=== PATIENT | female | born 1960 | race African-American/Black ===

== ENCOUNTER 2022-01-18 05:52 | Day surgery (SDC) | payer BC ==
[2022-01-16 13:22] VITALS: BMI 23.3
[2022-01-18] MEDS ORDERED: oxyCODONE HCL 5 MG TABLET PO PRN (07:05)
[2022-01-18] MEDS ORDERED: ONDANSETRON 4 MG/2 ML VIAL IVPUSH PRN (07:05)
[2022-01-18] MEDS ORDERED: PROPOFOL 60 ML ONE (07:10)
[2022-01-18] MEDS ORDERED: LACTATED RINGERS SOLUTION 1,000 ML IV SCH ×2 (07:15→11:30)
[2022-01-18] MEDS ORDERED: BUPIVACAINE LIPOSOME/PF (EXPAREL) 266 MG/20 ML VIAL ONE (07:55)
[2022-01-18] MEDS ORDERED: BUPIVACAINE HCL/PF 0.5% (5 MG/ML) 30 ML VIAL IJ ONE (07:55)
[2022-01-18] MEDS ORDERED: MIDAZOLAM HCL 2 MG/2 ML SINGLE DOSE VIAL ONE (07:56)
[2022-01-18] MEDS ORDERED: BUPIVACAINE HCL 50 ML ONE (08:12)
[2022-01-18] MEDS ORDERED: PROPOFOL 20 ML ONE (10:37)
[2022-01-18] MEDS ORDERED: MAGNESIUM HYDROX 2400MG/30ML ORAL SUSPENSION 30 ML CUP PO PRN (11:18)
[2022-01-18] MEDS ORDERED: MAG HYDROX/AL HYDROX/SIMETH 30 ML UNIT-DOSE CUP PO PRN (11:18)
[2022-01-18] MEDS ORDERED: FENTANYL CITRATE/PF 50 MCG/ML VIAL ONE ×2 (12:24→12:44)
[2022-01-18] MEDS: oxyCODONE HCL 5 MG TABLET PO PRN ×2 (13:54→20:08)
[2022-01-18] MEDS: oxyCODONE HCL 10 MG SUSTAINED ACTING TABLET PO SCH (14:11)
[2022-01-18] MEDS: CEFAZOLIN SODIUM 2 GM in DEXTROSE 5%-WATER 100 ML IVPB SCH ×2 (16:02→21:51)
[2022-01-18] MEDS: ONDANSETRON 4 MG/2 ML VIAL IVPUSH PRN ×2 (16:57→17:03)
[2022-01-18] MEDS ORDERED: hydrALAZINE HCL 20 MG/ML VIAL IM ONE (20:16)
[2022-01-18] MEDS ORDERED: hydrALAZINE HCL 20 MG/ML VIAL IVPUSH ONE ×2 (21:21→23:37)
[2022-01-18] MEDS ORDERED: hydrALAZINE HCL 20 MG/ML VIAL ONE (21:22)
[2022-01-19] MEDS: oxyCODONE HCL 10 MG SUSTAINED ACTING TABLET PO SCH ×2 (00:41→09:10)
[2022-01-19] MEDS: oxyCODONE HCL 5 MG TABLET PO PRN (00:42)
[2022-01-19] MEDS: ONDANSETRON 4 MG/2 ML VIAL IVPUSH PRN ×2 (02:54→09:40)
[2022-01-19] MEDS: NIFEdipine E.R 60 MG TABLET PO SCH ×2 (03:15→09:09)
[2022-01-19] MEDS: SENNOSIDES/DOCUSATE COMBO (SENNA PLUS) TABLET (UD) PO SCH ×3 (03:16→12:57)
[2022-01-19] MEDS: CARVEDILOL 25 MG TABLET (FP) PO SCH ×4 (03:16→21:24)
[2022-01-19] MEDS: CELECOXIB 200 MG CAPSULE PO SCH ×4 (03:17→21:24)
[2022-01-19] MEDS: ASPIRIN COATED 81 MG TABLET.EC PO SCH ×4 (03:17→21:24)
[2022-01-19] MEDS: ATORVASTATIN CA 40 MG TABLET (FP) PO SCH ×2 (03:17→21:24)
[2022-01-19] MEDS ORDERED: HYDROmorphone HCl 2 MG/ML VIAL IVPB ONE ×2 (04:04→16:40)
[2022-01-19] MEDS: CEFAZOLIN SODIUM 2 GM in DEXTROSE 5%-WATER 100 ML IVPB SCH (04:38)
[2022-01-19 08:16] LABS: CALCIUM 9.4 mg/dl (8.5-10); CREATININE 1.8 mg/dl (0.55-1.3)
[2022-01-19 08:23] LABS: HEMATOCRIT 41.5 % (32.4-45.2); HEMOGLOBIN 13.7 G/dL (10.7-15.3); MCH 28.7 pg (25.7-33.7); MEAN CELL VOLUME 86.9 fl (80-96); MEAN PLT VOLUME 10.9 fl (7.5-11.1); RBC 4.77 10^6/uL (3.60-5.2); RDW 15.6 % (11.6-15.6); WHITE BLOOD COUNT 10.8 10^3/uL (4.0-10.8)
[2022-01-19] MEDS: prednisoLONE ACETATE 1% OPHTH SUSP 5 ML BOTTLE OD SCH (09:08)
[2022-01-19] MEDS: TIMOLOL 0.5% OPHTHALMIC SOL 5 ML BOTTLE OD SCH (09:08)
[2022-01-19] MEDS: CHLORTHALIDONE 25 MG TABLET PO SCH ×2 (09:09→12:56)
[2022-01-19] MEDS: EZETIMIBE 10 MG TABLET (FP) PO SCH ×2 (09:09→12:58)
[2022-01-19] MEDS: RIVAROXABAN 20 MG TABLET PO SCH ×2 (09:09→12:58)
[2022-01-19] MEDS: CHOLECALCIFEROL (VIT D3 5000 UNITS) 125 MCG TAB PO SCH ×2 (09:09→12:58)
[2022-01-19] MEDS: PANTOPRAZOLE 40 MG TABLET PO SCH (09:18)
[2022-01-19] MEDS ORDERED: CHLORTHALIDONE 25 MG TABLET PO SCH (10:00)
[2022-01-19] MEDS ORDERED: LABETALOL HCL 5 MG/1 ML (100MG/20 ML VIAL) IVPUSH ONE (10:31)
[2022-01-19] MEDS: NIFEdipine E.R. 90 MG TABLET PO SCH (12:57)
[2022-01-19] MEDS: hydrALAZINE HCL 25 MG TABLET (FP) PO SCH ×2 (14:36→21:24)
[2022-01-19] MEDS ORDERED: hydrALAZINE HCL 20 MG/ML VIAL IVPUSH PRN (16:41)
[2022-01-20] MEDS: oxyCODONE HCL 10 MG SUSTAINED ACTING TABLET PO SCH ×3 (05:15→21:03)
[2022-01-20] MEDS: SENNOSIDES/DOCUSATE COMBO (SENNA PLUS) TABLET (UD) PO SCH ×3 (05:15→21:02)
[2022-01-20] MEDS: hydrALAZINE HCL 25 MG TABLET (FP) PO SCH ×3 (07:00→21:06)
[2022-01-20 08:32] LABS: ALBUMIN 3.1 g/dl (3.4-5.0); BILIRUBIN,TOTAL 0.7 mg/dl (0.2-1); CALCIUM 8.7 mg/dl (8.5-10); CREATININE 2.4 mg/dl (0.55-1.3); TOT PROT 5.8 g/dl (6.4-8.2)
[2022-01-20] MEDS: NIFEdipine E.R. 90 MG TABLET PO SCH (09:19)
[2022-01-20] MEDS: TIMOLOL 0.5% OPHTHALMIC SOL 5 ML BOTTLE OD SCH (09:19)
[2022-01-20] MEDS: RIVAROXABAN 20 MG TABLET PO SCH (09:19)
[2022-01-20] MEDS: prednisoLONE ACETATE 1% OPHTH SUSP 5 ML BOTTLE OD SCH (09:19)
[2022-01-20] MEDS: CHOLECALCIFEROL (VIT D3 5000 UNITS) 125 MCG TAB PO SCH (09:20)
[2022-01-20] MEDS: CELECOXIB 200 MG CAPSULE PO SCH ×2 (09:20→21:03)
[2022-01-20] MEDS: EZETIMIBE 10 MG TABLET (FP) PO SCH (09:20)
[2022-01-20] MEDS: CARVEDILOL 25 MG TABLET (FP) PO SCH ×2 (09:21→21:03)
[2022-01-20] MEDS: PANTOPRAZOLE 40 MG TABLET PO SCH (09:21)
[2022-01-20] MEDS: ASPIRIN COATED 81 MG TABLET.EC PO SCH ×2 (09:21→21:03)
[2022-01-20 10:21] LABS: HEMATOCRIT 39.3 % (32.4-45.2); HEMOGLOBIN 12.5 GM/dL (10.7-15.3); MCH 27.9 pg (25.7-33.7); MCHC 31.9 g/dl (32.0-36.0); MEAN CELL VOLUME 87.3 fl (80-96); MEAN PLT VOLUME 11.5 fl (7.5-11.1); PLATELET COUNT 143 10^3/uL (134-434); WHITE BLOOD COUNT 9.8 K/mm3 (4.0-10.0)
[2022-01-20] MEDS ORDERED: SODIUM CHLORIDE 0.45%/POT 20 MEQ/1,000 ML INFUS.BAG IV SCH (12:30)
[2022-01-20] MEDS ORDERED: POTASSIUM CHLORIDE TABS 10 MEQ TABLET.ER (FP) PO ONE (12:30)
[2022-01-20] MEDS: ATORVASTATIN CA 40 MG TABLET (FP) PO SCH (21:03)
[2022-01-21] MEDS: hydrALAZINE HCL 25 MG TABLET (FP) PO SCH ×2 (06:12→18:45)
[2022-01-21 08:47] LABS: ALBUMIN 3.1 g/dl (3.4-5.0); BILIRUBIN,TOTAL 0.7 mg/dl (0.2-1); CALCIUM 8.9 mg/dl (8.5-10); CREATININE 2.3 mg/dl (0.55-1.3)
[2022-01-21] MEDS ORDERED: POTASSIUM CHLORIDE TABS 20 MEQ TABLET.ER (FP) PO ONE (09:37)
[2022-01-21] MEDS ORDERED: SODIUM CHLORIDE 1,000 ML IV SCH (09:45)
[2022-01-21 09:46] VITALS: PULSE 61
[2022-01-21] MEDS: CELECOXIB 200 MG CAPSULE PO SCH (10:08)
[2022-01-21] MEDS: SENNOSIDES/DOCUSATE COMBO (SENNA PLUS) TABLET (UD) PO SCH (10:08)
[2022-01-21] MEDS: CHOLECALCIFEROL (VIT D3 5000 UNITS) 125 MCG TAB PO SCH (10:08)
[2022-01-21] MEDS: CARVEDILOL 25 MG TABLET (FP) PO SCH (10:08)
[2022-01-21] MEDS: EZETIMIBE 10 MG TABLET (FP) PO SCH (10:08)
[2022-01-21] MEDS: RIVAROXABAN 20 MG TABLET PO SCH (10:08)
[2022-01-21] MEDS: NIFEdipine E.R. 90 MG TABLET PO SCH (10:08)
[2022-01-21] MEDS: PANTOPRAZOLE 40 MG TABLET PO SCH (10:09)
[2022-01-21 10:34] LABS: BASO % 0.4 % (0-2.0); EOS % 0.8 % (0-4.5); HEMATOCRIT 36.7 % (32.4-45.2); HEMOGLOBIN 11.9 GM/dL (10.7-15.3); LYMPH % 27.7 % (8-40); MCH 28.1 pg (25.7-33.7); MCHC 32.4 g/dl (32.0-36.0); MEAN PLT VOLUME 11.7 fl (7.5-11.1); NEUT % 63.1 % (42.8-82.8); PLATELET COUNT 141 10^3/uL (134-434); RBC 4.22 M/mm3 (3.60-5.2); RDW 14.9 % (11.6-15.6); WHITE BLOOD COUNT 8.2 K/mm3 (4.0-10.0)
[2022-01-21] MEDS: TIMOLOL 0.5% OPHTHALMIC SOL 5 ML BOTTLE OD SCH (10:44)
[2022-01-21 14:48] VITALS: BP 108/57; RESP 17; TEMP 98.7
[2022-01-21] MEDS: prednisoLONE ACETATE 1% OPHTH SUSP 5 ML BOTTLE OD SCH (18:43)
[2022-01-21] MEDS: oxyCODONE HCL 10 MG SUSTAINED ACTING TABLET PO SCH (18:43)
[2022-01-24 12:07] LABS: RENIN ACTIVITY(PRA) 0.266 ng/mL/hr (0.167-5.380)
== END 2022-01-21 18:47 | disposition home or self-care (01) ==
LOC: FASUSAT 05:52 → FM/S 13:26 → FASUSAT 01-21 18:47
PROVIDERS: ATTEND Orthopaedic Surgery Orthopaedic Surgery of the Spine
PROC: 0MNN0ZZ Release Right Knee Bursa and Ligament, Open Approach (ICD-10-PCS; 2022-01-18)
PROC: 0SRC0JA Replacement of Right Knee Joint with Synthetic Substitute, Uncemented, Open Approach (ICD-10-PCS; principal; 2022-01-18 08:57)
DX: M17.11 Unilateral primary osteoarthritis, right knee (principal); I12.9 Hypertensive chronic kidney disease with stage 1 through stage 4 chronic kidney disease, or unspecified chronic kidney disease; N18.9 Chronic kidney disease, unspecified; E87.6 Hypokalemia; N04.1 Nephrotic syndrome with focal and segmental glomerular lesions
CPT/HCPCS: 27425; 27447; C1776; 36415; 73560-TC-RT-FY; 76775-TC; 80048; 80053; 82088; 83735; 84244; 85025; 85027; 88305-TC; 88311-TC; 93005; 93010; 94760; 97010-GP; 97116-GP; 97162-GP; C1713; C1889; J3480